=== PATIENT | male | born 2000 | race African-American/Black ===

== ENCOUNTER 2018-06-07 21:31 | Emergency (ER) | payer OTHER, MEDICAID ==
[~2018-06-07] VITALS: Ht 182.9 cm; Wt 72.6 kg
[~2018-06-07 21:31] MED LIST: ABILIFY 5 MG TAB5 M1 PO; ALLEGRA-D 24 H1 EACH PO; AMOXICILLIN500 M1 PO; BENTYL 20 MG TA20 M1 PO; BENTYL20 MG PO; CYCLOBENZAPRINE5 MG PO; IBUPROFEN 400400 M2 PO; IBUPROFEN 600600 M1 PO; MIRALAX17 GM PO; NOHOMEMEDICATIONS; SERTRALINE HCL50 MG PO; ZOFRAN4 MG PO
[2018-06-07 23:57] VITALS: BP 130/57
== END 2018-06-08 00:33 | disposition home or self-care (01) ==
LOC: M.ERS 21:31
DX: R53.1 Weakness (principal); F41.9 Anxiety disorder, unspecified; F31.9 Bipolar disorder, unspecified; F17.210 Nicotine dependence, cigarettes, uncomplicated; Z88.6 Allergy status to analgesic agent

== ENCOUNTER 2019-01-22 23:12 | Emergency (ER) | payer OTHER, MEDICAID ==
[~2019-01-22] VITALS: Ht 182.9 cm; Wt 72.6 kg
[2019-01-23 00:10] VITALS: BP 124/86
== END 2019-01-23 00:11 | disposition home or self-care (01) ==
LOC: M.ERS 23:12
DX: K40.90 Unilateral inguinal hernia, without obstruction or gangrene, not specified as recurrent (principal); F41.9 Anxiety disorder, unspecified; K58.9 Irritable bowel syndrome, unspecified; F31.9 Bipolar disorder, unspecified; F17.210 Nicotine dependence, cigarettes, uncomplicated; Z88.6 Allergy status to analgesic agent; Z88.8 Allergy status to other drugs, medicaments and biological substances

== ENCOUNTER 2019-08-02 00:26 | Emergency (ER) | payer OTHER, MEDICAID ==
[~2019-08-02] VITALS: Ht 182.9 cm; Wt 70.3 kg
[2019-08-02] MEDS ORDERED: ZOVIRAX400 MG PO (01:36)
[2019-08-02 01:41] LABS: URINE BILIRUBIN NEGATIVE (Negative); URINE BLOOD NEGATIVE (Negative); URINE CLARITY CLEAR; URINE COLOR YELLOW; URINE GLUCOSE-RANDOM NEGATIVE (Negative); URINE KETONES NEGATIVE (Negative); URINE LEUKOCYTES-REFLEX NEGATIVE (Negative); URINE NITRITE-REFLEX NEGATIVE (Negative); URINE PROTEIN NEGATIVE (Negative); URINE SPECIFIC GRAVITY 1.025 (1.005-1.030); URINE UROBILINOGEN 0.2 E.U./dl (0.2-1.0)
[2019-08-02 01:53] VITALS: BP 144/78
[2019-08-04 22:06] LABS: HSV 1 DNA Negative (Negative); HSV 2 DNA Positive (Negative)
== END 2019-08-02 01:53 | disposition home or self-care (01) ==
LOC: M.ERS 00:26
PROVIDERS: Emergency Medicine
DX: N50.89 Other specified disorders of the male genital organs (principal); F41.9 Anxiety disorder, unspecified; F31.9 Bipolar disorder, unspecified; F17.210 Nicotine dependence, cigarettes, uncomplicated; Z90.89 Acquired absence of other organs; Z98.890 Other specified postprocedural states; Z88.6 Allergy status to analgesic agent; Z88.8 Allergy status to other drugs, medicaments and biological substances

== ENCOUNTER 2020-05-10 16:42 | Emergency (ER) | payer OTHER, MEDICAID ==
[~2020-05-10] VITALS: Ht 182.9 cm; Wt 68.0 kg
[~2020-05-10 16:42] MED LIST changes: +ZOVIRAX400 MG PO
[2020-05-10] MEDS ORDERED: PENICILLIN VK500 M1 PO (17:49)
[2020-05-10] MEDS ORDERED: NORCO 5-325 TA1 EAC2 PO (17:49)
[2020-05-10 18:00] VITALS: BP 120/72
== END 2020-05-10 18:02 | disposition home or self-care (01) ==
LOC: M.ERS 16:42
DX: K08.89 Other specified disorders of teeth and supporting structures (principal); K58.9 Irritable bowel syndrome, unspecified; F17.210 Nicotine dependence, cigarettes, uncomplicated; Z88.6 Allergy status to analgesic agent

== ENCOUNTER 2020-07-06 02:08 | Emergency (ER) | payer OTHER, MEDICAID ==
[~2020-07-06] VITALS: Ht 182.9 cm; Wt 68.0 kg
[~2020-07-06 02:08] MED LIST changes: +NORCO 5-325 TA1 EAC2 PO; +PENICILLIN VK500 M1 PO
[2020-07-06 03:11] VITALS: BP 140/98
== END 2020-07-06 03:11 | disposition home or self-care (01) ==
LOC: M.ERS 02:08
DX: M27.3 Alveolitis of jaws (principal); F17.210 Nicotine dependence, cigarettes, uncomplicated; Z88.6 Allergy status to analgesic agent; Z88.8 Allergy status to other drugs, medicaments and biological substances; Z98.890 Other specified postprocedural states

== ENCOUNTER 2020-08-21 19:25 | Emergency (ER) | payer OTHER, MEDICAID ==
[~2020-08-21] VITALS: Ht 182.9 cm; Wt 68.0 kg
[2020-08-21 20:43] VITALS: BP 132/75
--- NOTE | 2020-08-22 10:16 | EKG ---
[place] [address] ELECTROCARDIOGRAM REPORT Name: SHAGUFTA HOBSON Room: [facility]#: [id number] Admission: 08/21/20 Attend Phys: Discharge: 08/21/20 Date of : [birth year] Date of Service: 08/21/201934 Report #: [id number] THIS REPORT FOR: //name// [facility] ED Test Date: 2020-08-21 Test Time: 19:35:28 Pat Name: SHAGUFTA HOBSON Department: Room: Gender: Sack Department Supervisor: : 2000 Requested By: Shanda Mathis Order Number: [id number] MD: Amrik Lane Measurements Intervals [place] Rate: 114 P: 75 NC: 123 QRS: 60 QRSD: 74 T: 12 QT: 285 QTc: 393 Interpretive Statements Sinus tachycardia Probable left atrial enlargement Borderline T wave abnormalities Compared to ECG 03/21/2016 16:01:41 T-wave abnormality now present Sinus rate has increased Early repolarization no longer present Electronically Signed On 08-22-2020 10:16:27 CLEANING TEAM MEMBER by Amrik Lane [email or web address] <ELECTRONICALLY SIGNED> By: Amrik Lane MD, FACC 08/22/[id number] MD, [facility] /EPI
== END 2020-08-21 20:45 | disposition home or self-care (01) ==
LOC: M.ERS 19:25
DX: B34.9 Viral infection, unspecified (principal); Z20.828 Contact with and (suspected) exposure to other viral communicable diseases; R50.9 Fever, unspecified; F17.210 Nicotine dependence, cigarettes, uncomplicated; Z88.6 Allergy status to analgesic agent; Z98.890 Other specified postprocedural states

== ENCOUNTER 2021-03-28 10:53 | Emergency (ER) | payer OTHER, MEDICAID ==
[~2021-03-28] VITALS: Ht 182.9 cm; Wt 74.8 kg
[2021-03-28 12:30] VITALS: BP 118/68
== END 2021-03-28 12:30 | disposition home or self-care (01) ==
LOC: M.ERS 10:53
DX: B34.9 Viral infection, unspecified (principal); Z20.822 Contact with and (suspected) exposure to COVID-19; F41.9 Anxiety disorder, unspecified; F17.210 Nicotine dependence, cigarettes, uncomplicated; Z88.1 Allergy status to other antibiotic agents; Z88.6 Allergy status to analgesic agent

== ENCOUNTER 2021-06-18 12:36 | Emergency (ER) | payer OTHER, MEDICAID ==
[~2021-06-18] VITALS: Ht 167.6 cm; Wt 72.6 kg
[2021-06-18] MEDS ORDERED: PREDNISONE 20 M20 M1 PO (13:01)
[2021-06-18] MEDS ORDERED: ZPAK PO (13:01)
[2021-06-18 13:07] VITALS: BP 118/78
== END 2021-06-18 13:08 | disposition home or self-care (01) ==
LOC: M.ERS 12:36
DX: J40 Bronchitis, not specified as acute or chronic (principal); F41.9 Anxiety disorder, unspecified; F17.210 Nicotine dependence, cigarettes, uncomplicated; Z90.89 Acquired absence of other organs; Z88.6 Allergy status to analgesic agent